=== PATIENT | male | born 1965 | race Asian ===

== ENCOUNTER 2021-05-24 13:34 | Emergency (ER) | payer OTHER ==
[2021-05-24] MEDS ORDERED: IBUPROFEN 600 MG TABLET (FP) PO ONE ×2 (13:39→14:09)
[2021-05-24 14:13] VITALS: BP 127/80; PULSE 92; TEMP 98.7; BMI 20.9
== END 2021-05-24 14:31 | disposition home or self-care (01) ==
LOC: FER 13:34
DX: S39.012A Strain of muscle, fascia and tendon of lower back, initial encounter (principal); S46.911A Strain of unspecified muscle, fascia and tendon at shoulder and upper arm level, right arm, initial encounter; S66.911A Strain of unspecified muscle, fascia and tendon at wrist and hand level, right hand, initial encounter; W19.XXXA Unspecified fall, initial encounter
CPT/HCPCS: 73030-TC-RT-FY; 73110-TC-RT-FY; 99284-25